=== PATIENT | male | born 1985 | race Caucasian/White ===

== ENCOUNTER 2025-06-13 16:13 | Emergency (ER) | payer OTHER, SELFPAY ==
[2025-06-13 16:17] VITALS: BP 149/100
[2025-06-13 19:13] VITALS: BMI 53.0
--- NOTE | 2025-06-13 20:05 | ED.GENMED ---
History of Present Illness
<Mat Escobar, DO - Last Filed: 06/13/25 20:07>
General
Chief Complaint: Back Pain
Time Seen by Provider: 06/13/25 19:13
<Linda Leary NP - Last Filed: 06/14/25 00:27>
General
Source: patient
Exam Limitations: none
Nursing documentation reviewed up to this point in time: agreed with
History of Present Illness
History of Present Illness:
Patient to ED with cmoplaint of left low back pain with radiation to LLE. States on June 01 he was getting out of his car and heard a pop. He had immediate shooting pain down LLE. He was evaluated by PCP today and sent to ED for concern of cauda
equina. Denies any bowel or bladder symptoms, no saddle paresthesia. Reports numbnes and tingling to leg. No weakness, just pain in LLE. Brought to ED by spouse for eval.
Past History
<Linda Leary NP - Last Filed: 06/14/25 00:27>
Past History
ED Past Medical History: Other (chronic low back pain)
ED Past Surgical History: Orthopedic (prior lumbar surgery)
Review of Systems
<Linda Leary NP - Last Filed: 06/14/25 00:27>
Review of Systems
Allergies reviewed?: Yes
All Other Systems: ROS reviewed and negative except as documented in HPI and ROS
Constitutional: Reports no symptoms
EENT: Reports no symptoms
Respiratory: Reports no symptoms
Cardiac: Reports no symptoms
ABD/GI: Reports no symptoms
: Reports no symptoms
Musculoskeletal: Reports back pain (pain to left lower back.)
Skin: Reports no symptoms
Neurological: Reports numbness (numbness and tingling to LLE)
Psychiatric: Reports no symptoms
Phy Exam
<Linda Leary, HIGH SCHOOL SCIENCE TUTOR - Last Filed: 06/14/25 00:27>
General Physical Exam
General Presentation: moderate distress
General age: appears stated age
General Skin: warm and dry
General Habitus: normal
General Mental: alert
General Hydration: appears well hydrated
Gastrointestinal Exam
Gastrointestinal Exam: non tender and soft
Musculoskeletal Exam
Musculoskeletal Exam: neuro vasc intact and other (Left lower back pain. Worse with movement, bending, twisting. Radiating pain to LLE, numbness and tingling to LLE. Equal strength bilaterally. No saddle paresthesia.)
Skin Exam
Skin Exam: normal color, warm/dry and no rash
Psychiatric Exam
Psychiatric Exam: normal mood/affect
Course
<Mat Escobar, DO - Last Filed: 06/13/25 20:07>
Orders/Labs/Results
Orders:
Orders
06/13/25 20:05
Lumbar Without Contrast MR [MR Lumbar Without Contrast] Urgent
Comment:
Reason For Exam: Low back pain, LLE numbness, drop foot.
OK for patient to be off Cardiac Monitoring for MRI: Yes
Recent pill cam endoscopy?: No
06/13/25 22:31
HYDROmorphone [Dilaudid] 0.5 mg IM NOW STA
06/13/25 23:24
Dexamethasone Pf [Decadron] 10 mg PO NOW STA
Vital Signs
Initial and Last Documented VS:
Initial Vital Signs
Temp Pulse Resp BP Pulse Ox
98.3 F 117 20 149/100 97
06/13/25 16:17 06/13/25 16:17 06/13/25 16:17 06/13/25 16:17 06/13/25 16:17
Last Documented Vital Signs
Temp Pulse Resp BP Pulse Ox
98.3 F 117 20 134/56 97
06/13/25 16:17 06/13/25 16:17 06/13/25 16:17 06/13/25 22:04 06/13/25 22:30
<Linda Leary NP - Last Filed: 06/14/25 00:27>
Orders/Labs/Results
Orders:
Orders
06/13/25 20:05
Lumbar Without Contrast MR [MR Lumbar Without Contrast] Urgent
Comment:
Reason For Exam: Low back pain, LLE numbness, drop foot.
OK for patient to be off Cardiac Monitoring for MRI: Yes
Recent pill cam endoscopy?: No
06/13/25 22:31
HYDROmorphone [Dilaudid] 0.5 mg IM NOW STA
06/13/25 23:24
Dexamethasone Pf [Decadron] 10 mg PO NOW STA
Vital Signs
Initial and Last Documented VS:
Initial Vital Signs
Temp Pulse Resp BP Pulse Ox
98.3 F 117 20 149/100 97
06/13/25 16:17 06/13/25 16:17 06/13/25 16:17 06/13/25 16:17 06/13/25 16:17
Last Documented Vital Signs
Temp Pulse Resp BP Pulse Ox
98.3 F 117 20 134/56 97
06/13/25 16:17 06/13/25 16:17 06/13/25 16:17 06/13/25 22:04 06/13/25 22:30
<Mat Escobar DO - Last Filed: 06/13/25 20:07>
*Pulse Oximetry
SaO2: 97
Oxygen Mode of Delivery: Room air
<Linda Leary NP - Last Filed: 06/14/25 00:27>
*Pulse Oximetry
Patient hypoxic: no
*Critical Care Note
Total Time (30-74mins, 75-104mins- exclusive of procedures): Not Applicable
<Linda Leary, HIGH SCHO[employer] SCIENCE TUTOR - Last Filed: 06/14/25 00:27>
Update Note
Update Note:
MRi report reviewed with Dr Maguire. No cauda equina syndrome noted. +L4 herniation. Discussed report findings with patient. WIll place on steroid taper, short course of pain medication and he will follow up [facility] pain management. Given
instructions no s/s to return to ED and he is agreeable to plan.
ED Attending Note
<Mat Escobar, DO - Last Filed: 06/13/25 20:07>
ED Attending Note
Patient seen and examined by attending physician: Yes
I performed the substantive portion of visit, reviewed & personally made and approve the management plan that is documented in note by myself or JAYCE.: Yes
ED Attending Note:
I have seen and evaluated the patient with a [id number] encounter. I have spoken to the advance practicer provider and involved in the medical history, the physical exam, medical decision making.
Evaluation and management service: agree unless noted differently below.
Results interpretation: agree unless noted differently below.
Focused HPI: 40-year-old male presenting for evaluation of MRI. Patient injured his left back as he was getting out of the car. This occurred 12 days ago but since then, patient has been having trouble with pain and issues with his left foot. He
followed up with his PCP who sent him in for an MRI
Physical exam: Sitting in bed comfortably. Positive straight leg raise on the left. Distal pulses intact. Sensation grossly intact. Decreased range of motion and muscle strength in his left leg secondary to pain. Mild foot drop noted to his
left leg
Medical Decision Making: Given the unilateral aspect of the symptoms and the duration of symptoms, I am less concerned about cauda equina syndrome. Patient denies any bowel or bladder issues. However, I did discuss the likely diagnosis of
herniated disc. Case was discussed with radiology and will obtain MRI from ER
-
Portions of this chart may have been created with voice recognition software.� Occasional wrong word or��sound alike� substitutions may have occurred due to the inherent limitations of voice recognition software.
Discharge Plan
Departure
Patient Disposition: Home (Routine Discharge)
Date of Disposition: 06/13/25
Time of Disposition: 23:27
Patient with high blood pressure during this ER visit?: No
Condition: Good
Covid-19: Not Applicable
Discharge Problem:
Lumbar disc herniation, Acute left lumbar radiculopathy
Instructions: Low Back Pain (DC), Radiculopathy (DC), Cold therapy for pain
Prescriptions:
New
tramadol 50 mg tablet
50 mg PO HS PRN (Reason: Pain) Qty: 10 0RF
prednisone 10 mg Tablet
See Rx Instructions .ROUTE .COMPLEX Qty: 45 0RF
Rx Instructions:
Take By Mouth:
50 mg daily x3 days, 40 mg daily x3 days,
30 mg daily x3 days, 20 mg daily x3 days,
10 mg daily x3 days
Referrals:
Obed Anand CRNP [Family Provider, Family Practice]
Woody Goodwin MD [Active, Orthopedics] - Call in 1-3 days for appt
Activity Restrictions/Additional Instructions:
Return to the emergency department for any changes in/worsening of your symptoms.
Interventions
Interventions:
*Risk Screen - Suicide Last Done: 06/13/25 19:14
*General Assessment Last Done: 06/13/25 19:14
*Neglect/Abuse Screening Last Done: 06/13/25 19:14
*ED- Fall Risk Assessment Last Done: 06/13/25 19:14
*ED COVID-19 Vaccine History Last Done: 06/13/25 19:14
*Nursing Disposition Last Done: 06/13/25 23:54
ED-Musculoskeletal Assessment Last Done: 06/13/25 19:14
Discharge Date and Time
Discharge Date/Time: 06/13/25 23:55
Print Language: TAMAZIGHT
Musculoskeletal Injury Exam
<Linda Leary [employer] - Last Filed: 06/14/25 00:27>
Musculoskeletal Injury Exam
Left Lower Back:
Pain with Movement?: Moderate
Tender to palpation?: Moderate
Soft tissue swelling?: None
External deformity and angulation?: None
Joint effusion?: None
Contusion?: None
Hematoma-local bleeding into tissue?: None
Strain- Sprain- Tear (Connective tissue injury)?: Moderate
Crepitus with movement?: No
Joint instability?: No
Malalignment/deformity?: No
Range of motion: Limited
Distal skin color and temperature: normal-warm & good color
Capillary Refill: normal
Normal distal neurovascular exam?: Yes
[2025-06-13 22:04] VITALS: BP 134/56
[2025-06-13] MEDS: DILAUDID 0.5 MG IM (22:35)
[2025-06-13] MEDS: DECADRON 10 MG PO (23:30)
== END 2025-06-13 23:55 | disposition home or self-care (01) ==
LOC: EMR 16:13
PROVIDERS: EMERGENCY PHYSICIAN Student in an Organized Health Care Education/Training Program; FAMILY PHYSICIAN Nurse Practitioner Family
DX: M51.16 Intervertebral disc disorders with radiculopathy, lumbar region (principal); V48.4XXA Person boarding or alighting a car injured in noncollision transport accident, initial encounter; I10 Essential (primary) hypertension; E11.9 Type 2 diabetes mellitus without complications; G89.29 Other chronic pain; Z79.84 Long term (current) use of oral hypoglycemic drugs; Z88.1 Allergy status to other antibiotic agents
CPT/HCPCS: 99284; 96372; 72148